=== PATIENT | male | born 1995 | race American Indian/Alaskan Native ===

== ENCOUNTER 2020-10-30 21:18 | Emergency (ER) | payer MEDICAID, OTHER ==
[~2020-10-30] VITALS: Ht 175.3 cm; Wt 66.0 kg
[~2020-10-30 21:18] MED LIST: CYCL-1 PO
[2020-10-30 21:37] VITALS: BP 119/63
[2020-10-30] MEDS ORDERED: DOXY-135 PO (23:39)
== END 2020-10-30 23:47 | disposition home or self-care (01) ==
LOC: ER 21:19
DX: J32.9 Chronic sinusitis, unspecified (principal); Z88.2 Allergy status to sulfonamides; Z79.2 Long term (current) use of antibiotics; Z88.8 Allergy status to other drugs, medicaments and biological substances
CPT/HCPCS: 99283

== ENCOUNTER 2024-02-26 18:20 | Emergency (ER) | payer BC, OTHER ==
[~2024-02-26] VITALS: Ht 175.3 cm; Wt 73.0 kg
[2024-02-26 18:27] VITALS: BP 115/73; PULSE 75; RESP 16; TEMP 98.6; O2SAT 98
[2024-02-26] MEDS: ketorolac trometh 30MG/ML vial 30 MG/ML VIAL IM ONE (20:02)
[2024-02-26] MEDS: ibuprofen tablet 400 MG TABLET PO ONE (20:11)
== END 2024-02-26 20:22 | disposition home or self-care (01) ==
LOC: ER 18:21
DX: M25.462 Effusion, left knee (principal); M25.562 Pain in left knee; Z88.2 Allergy status to sulfonamides; Z88.0 Allergy status to penicillin; Z79.899 Other long term (current) drug therapy
CPT/HCPCS: 73562; 99284

== ENCOUNTER 2024-12-10 22:53 | Emergency (ER) | payer BC, OTHER ==
[~2024-12-10] VITALS: Ht 175.3 cm; Wt 66.2 kg
[2024-12-10 23:06] VITALS: BP 124/86; PULSE 76; RESP 15; TEMP 98.6; O2SAT 99
--- NOTE | 2024-12-11 00:12 | Physician Documentation ---
History of Present Illness ~ Chief Complaint: Jaw Pain Stated Complaint: BUMP ON JAW Time Seen by MD: 23:31 Primary Medical Doctor: ARLINE VALLES Source: patient, RN/ HPI Patient is seen today with complaints of a small palpable and painful lump on his lower jaw that appeared couple of days ago. Patient denies any fevers or chills he states it is on the right lower side of the jaw. Close to his chin. Patient denies any injury and denies any tooth pain and has no other concern or complaint at this time. Tetanus Within 5 Years: No Medication Reconciliation Allergies: Coded Allergies: sulfamethoxazole (Verified Allergy, Intermediate, RASH, 12/10/24) RASH AFTER COMPLETED BACTRIM trimethoprim (Verified Allergy, Intermediate, RASH, 12/10/24) RASH AFTER COMPLETED BACTRIM Penicillins (Unverified Allergy, Unknown, 12/10/24) >5 years, hives, no treatment required, PEN-FAST 2 Scheduled PRN Cyclobenzaprine* (Cyclobenzaprine*), 1 TABLET PO Q8H PRN for muscle spasms Past Medical History Past Medical History: No Pertinent History Alcohol Use: None Drug Use: none Review of Systems Constitutional: Denies: chills, fever, weakness Eyes: Denies: pain, blurred vision ENT: Denies: ear pain, nose pain, throat pain, mouth pain Respiratory: Denies: cough, shortness of breath Cardiovascular: Denies: chest pain, palpitations Gastrointestinal: Denies: abdominal pain, nausea, vomiting Genitourinary: Denies: burning, dysuria Male Genitalia: Denies: penile discharge, testicular pain Neurological: Denies: headache, dizziness Musculoskeletal: Denies: pain, swelling Integumentary: Denies: rash, lesions Allergic/Immunologic: Denies: hives, itching Hematologic/Lymphatic: Denies: no symptoms reported Psychiatric: Denies: depression, anxiety Physical Exam Vital Signs: Temperature: 98.6, Heart Rate: 76, Respiratory Rate: 15, BP: 124/86, Pulse Oximetry: 99, Weight: 66.200 Physical Exam General: Awake and Alert, no acute distress. HEENT: Conjunctiva pink, Sclera clear, Mucus Membranes moist. Neck: Supple without masses and tenderness. Resp: Unlabored. Lungs clear to auscultation bilaterally. Heart: Regular Rate and rhythm, normal S1 and S2 without murmur, rub or gallop. Abdomen: Soft and non tender no organomegaly Extremities: No cyanosis,clubbing or edema. Skin: Patient on exam does have a very small palpable cystic type lesion on his chin on the right side consistent with likely cystic acne. The area is mildly tender to palpation. There is no purulent drainage or fluctuant mass. The lesion appears superficial. I do not appreciate any periapical abscess. Progress Results/Orders Results/Orders Vital Signs 12/10/24 23:06 Temp 98.6 Pulse 76 Resp 15 B/P (MAP) 124/86 Pulse Ox 99 Medical Decision Making Findings Patient is seen today with complaints of a small palpable and painful lump on his lower jaw that appeared couple of days ago. Patient denies any fevers or chills he states it is on the right lower side of the jaw. Close to his chin. Patient denies any injury and denies any tooth pain and has no other concern or complaint at this time. Patient will perform warm compress at home. I do not believe any type of oral antibiotic is needed at this time. Patient will follow up with primary care in 2-5 days if no better as needed sooner. Return to ED with any worsening, concerning or changing symptoms. Departure Disposition: 01 HOME / SELF CARE / HOMELESS Impression: Primary Impression: Cystic acne Condition: Stable Discharge Instructions: Acne, [id number] Additional Instructions: Patient will perform warm compress at home. I do not believe any type of oral antibiotic is needed at this time. Patient will follow up with primary care in 2-5 days if no better as needed sooner. Return to ED with any worsening, concerning or changing symptoms. Referrals: NO PRIMARY CARE PROVIDER (PCP) Signature Scribe Signature: No scribe Attestation: No scribe ARNOLD CALDERON Dec 11, 2024 00:12
== END 2024-12-11 00:15 | disposition home or self-care (01) ==
LOC: ER 22:54
DX: L70.0 Acne vulgaris (principal); Z88.2 Allergy status to sulfonamides; Z88.0 Allergy status to penicillin
CPT/HCPCS: 99281